=== PATIENT | male | born 1970 | race Caucasian/White ===

== ENCOUNTER 2020-12-24 20:12 | Emergency (ER) | payer OTHER ==
[~2020-12-24] VITALS: Ht 182.9 cm; Wt 174.6 kg
[2020-12-24 20:59] LABS: ABSOLUTE BASOPHILS 0.1 thou/uL (0.0-0.2); ABSOLUTE EOSINOPHILS 0.1 thou/uL (0.0-0.7); ABSOLUTE LYMPHOCYTES 3.5 thou/uL (0.8-5.3); ABSOLUTE MONOCYTES 0.9 thou/uL (0.0-1.2); ABSOLUTE NEUTROPHILS 7.7 thou/uL (1.6-8.1); BASOPHILS 0.7 %; HEMATOCRIT 44.6 % (42.0-52.0); HEMOGLOBIN 14.7 gm/dL (14.0-18.0); LYMPHOCYTES 28.2 %; MCH 29.8 pg (26.0-34.0); MCHC 32.9 g/dL (28.0-37.0); MCV 90.7 fL (80.0-100.0); MONOCYTES 7.3 %; MPV 7.8 fl. (7.2-11.1); NUCLEATED RBCS 0 /100WBC; PLATELET COUNT* 269 thou/uL (150-400); POLYS 62.8 %; RBC 4.92 mil/uL (4.50-6.00); RDW-CV 13.9 % (10.5-14.5); WBC 12.3 thou/uL (4.0-11.0)
[2020-12-24 21:05] LABS: CALCIUM 8.9 mg/dL (8.5-10.1); CREATININE 1.1 mg/dL (0.6-1.3)
[2020-12-24 21:10] LABS: ALBUMIN 3.2 g/dL (3.4-5.0); TOTAL BILIRUBIN 0.5 mg/dL (<0.1-1.0); TOTAL PROTEIN 7.3 g/dL (6.4-8.2)
[2020-12-25 01:38] VITALS: BP 110/75
--- NOTE | 2020-12-25 09:54 | EKG ---
[place] [address] ELECTROCARDIOGRAM REPORT Name: ELIEL FRANCO Room: [facility]#: [id number] Admission: 12/24/20 Attend Phys: Discharge: 12/25/20 Date of : 74 Date of Service: 12/24/202139 Report #: [id number] THIS REPORT FOR: //name// [facility] ED Test Date: 2020-12-24 Test Time: 21:40:14 Pat Name: ELIEL FRANCO Department: Room: Gender: House [employer]: [place] : 1970 Requested By: Umang Enriquez Order Number: [id number] MD: Manny Jeff Measurements Intervals Arma Rate: 93 P: 31 NM: 134 QRS: 11 QRSD: 114 T: 4 QT: 365 QTc: 454 Interpretive Statements Sinus rhythm Probable left atrial enlargement Incomplete right bundle branch block No previous ECG available for comparison Electronically Signed On 12-25-2020 9:54:05 CDT by Manny Jeff [email or web address] <ELECTRONICALLY SIGNED> By: Manny Jeff MD, [facility] 12/25/20 0954 2140 2140 Manny Jeff MD, [facility] /EPI
== END 2020-12-25 01:39 | disposition home or self-care (01) ==
LOC: M.ERS 20:12
PROVIDERS: Physician Assistant
DX: R11.2 Nausea with vomiting, unspecified (principal); E11.9 Type 2 diabetes mellitus without complications; T40.7X1A Poisoning by cannabis (derivatives), accidental (unintentional), initial encounter; Y92.89 Other specified places as the place of occurrence of the external cause